=== PATIENT | female | born 1970 | race Two or more races ===

== ENCOUNTER 2022-03-02 10:25 | Emergency (ER) | payer OTHER ==
[~2022-03-02] VITALS: Ht 165.1 cm; Wt 99.8 kg
[2022-03-02] MEDS ORDERED: SYNTHROID150 MCG PO (10:45)
[2022-03-02] MEDS ORDERED: CYCLOBENZAPRINE10 MG PO (15:08)
[2022-03-02] MEDS ORDERED: NORFLEX100MG PO (15:08)
[2022-03-02] MEDS ORDERED: CYMBALTA20 MG PO (15:09)
== END 2022-03-02 15:14 | disposition home or self-care (01) ==
LOC: ER 10:25
DX: M25.511 Pain in right shoulder (principal); M54.30 Sciatica, unspecified side; Z88.6 Allergy status to analgesic agent